=== PATIENT | male | born 1985 | race Hispanic/Latino ===

== ENCOUNTER 2021-03-22 12:42 | Emergency (ER) | payer SELFPAY ==
[~2021-03-22] VITALS: Ht 172.7 cm; Wt 113.4 kg
[2021-03-22 16:30] VITALS: BP 126/85
[2021-03-22] MEDS ORDERED: DIPH25CA85 PO (16:31)
== END 2021-03-22 16:40 | disposition home or self-care (01) ==
LOC: EDH 12:42
DX: L25.9 Unspecified contact dermatitis, unspecified cause (principal)
CPT/HCPCS: 99281